=== PATIENT | female | born 1960 | race African-American/Black ===

== ENCOUNTER 2024-04-27 07:12 | Day surgery (SDC) | payer OTHER ==
[2024-04-26 14:40] VITALS: BMI 41.6
[2024-04-27 08:42] VITALS: TEMP 98.6
[2024-04-27 08:54] VITALS: RESP 15
[2024-04-27 09:14] VITALS: BP 118/58; PULSE 68
== END 2024-04-27 10:48 | disposition home or self-care (01) ==
LOC: JASU-ENDO 07:12
PROVIDERS: ATTEND Internal Medicine Gastroenterology
PROC: 0DBM8ZX Excision of Descending Colon, Via Natural or Artificial Opening Endoscopic, Diagnostic (ICD-10-PCS; principal; 2024-04-27 08:00)
DX: Z12.11 Encounter for screening for malignant neoplasm of colon (principal); D12.4 Benign neoplasm of descending colon
CPT/HCPCS: 88305-TC